=== PATIENT | female | born 1965 | race Caucasian/White ===

== ENCOUNTER 2025-03-05 13:40 | Outpatient (CLI) | payer OTHER, SELFPAY ==
--- NOTE | ~2025-03-05 | CT_ITS ---
EXAMINATION: CTA neck DATE: 03/05/2025 14:29 INDICATION: Carotid stenosis, bilateral. TECHNIQUE: Computed tomographic angiography (CTA) of the neck was performed with 100 mL Omnipaque-350 intravenous contrast. Automated exposure control and iterative reconstruction technique were employed. The dose-length product was 723.61 mGy-cm. Maximum intensity projection 3D-reconstructions were created by the technologist on a separate workstation. COMPARISON: None. FINDINGS: There is mild scarring at the lung apices. There are no pathologically enlarged lymph nodes. There is moderate stenosis of proximal right vertebral artery. The vertebral arteries are codominant. There is plaque in the proximal internal carotid arteries. There is 30% stenosis of the proximal right internal carotid artery relative to normal distal artery lumen diameter (NASCET criteria). There is 24% stenosis of the proximal left internal carotid artery relative to normal distal artery lumen diameter. There is severe cervical spondylosis. IMPRESSION: 1. 30% stenosis of the proximal right internal carotid artery relative to normal distal artery lumen diameter (NASCET criteria). 2. 24% stenosis of the proximal left internal carotid artery relative to normal distal artery lumen diameter. 3. Moderate stenosis of proximal right vertebral artery. Reviewed, dictated and finalized at location E. IMPRESSION: 1. 30% stenosis of the proximal right internal carotid artery relative to maria eugenia l distal artery lumen diameter (NASCET criteria). 2. 24% stenosis of the proximal left internal carotid artery relative to normal distal artery lumen diameter. 3. Moderate stenosis of proximal right vertebral artery.
[2025-03-05 14:14] LABS: Estimated Glomerular Filt Rate > 60
== END 2025-03-05 13:41 | disposition home or self-care (01) ==
LOC: MICIMG 13:42
PROVIDERS: PCP Surgery Vascular Surgery; Visit Provider Surgery Vascular Surgery
DX: I65.23 Occlusion and stenosis of bilateral carotid arteries (principal); I65.01 Occlusion and stenosis of right vertebral artery
CPT/HCPCS: 70498; Q9967